=== PATIENT | male | born 1975 | race Two or more races ===

== ENCOUNTER 2020-09-01 07:56 | Emergency (ER) | payer OTHER ==
[~2020-09-01] VITALS: Ht 170.2 cm; Wt 97.5 kg
[~2020-09-01 07:56] MED LIST: DIOVAN320 MG; HYZAAR 100-121 UDTAB PO; METOPROLOL SUCC50 MG PO
[2020-09-01] MEDS ORDERED: AVALIDE 300-121 EACH (08:16)
[2020-09-01] MEDS ORDERED: DICLOFENAC SOD100 MG PO (12:22)
[2020-09-01] MEDS ORDERED: SKELAXIN800 MG PO (12:22)
== END 2020-09-01 12:46 ==
LOC: ER 07:56
DX: M51.26 Other intervertebral disc displacement, lumbar region (principal); M51.27 Other intervertebral disc displacement, lumbosacral region; M62.830 Muscle spasm of back

== ENCOUNTER 2020-09-18 08:38 | Outpatient (CLI) | payer OTHER ==
[~2020-09-18 08:38] MED LIST changes: +AVALIDE 300-121 EACH; +DICLOFENAC SOD100 MG PO; +SKELAXIN800 MG PO
== END 2020-09-18 08:45 | disposition home or self-care (01) ==
LOC: MRI 08:38
PROVIDERS: ATTEND Physical Medicine & Rehabilitation
DX: M48.07 Spinal stenosis, lumbosacral region (principal); M54.5 Low back pain
CPT/HCPCS: 72148

== ENCOUNTER 2020-09-21 14:44 | Emergency (ER) | payer OTHER ==
[~2020-09-21] VITALS: Ht 170.2 cm; Wt 92.1 kg
== END 2020-09-21 18:03 | disposition home or self-care (01) ==
LOC: ER 14:44
DX: N50.812 Left testicular pain (principal); N50.811 Right testicular pain; N50.82 Scrotal pain

== ENCOUNTER 2021-02-21 02:05 | Emergency (ER) | payer OTHER ==
[~2021-02-21] VITALS: Ht 170.2 cm; Wt 98.9 kg
[2021-02-21] MEDS ORDERED: KETO10TA2 PO (03:29)
[2021-02-21] MEDS ORDERED: NORFLEX100MG PO (03:29)
== END 2021-02-21 04:11 | disposition home or self-care (01) ==
LOC: ER 02:05
DX: M54.5 Low back pain (principal)

== ENCOUNTER 2021-05-17 23:06 | Emergency (ER) | payer OTHER ==
[~2021-05-17] VITALS: Ht 170.2 cm; Wt 98.9 kg
[~2021-05-17 23:06] MED LIST changes: +KETO10TA2 PO; +NORFLEX100MG PO
[2021-05-18] MEDS ORDERED: NEURONTIN300 MG PO (02:07)
[2021-05-18] MEDS ORDERED: MEDROLPACK PO (02:07)
[2021-05-18] MEDS ORDERED: NORFLEX100MG PO (02:07)
[2021-05-18] MEDS ORDERED: KETO10TA2 PO (02:07)
== END 2021-05-18 02:33 | disposition home or self-care (01) ==
LOC: ER 23:06
DX: R07.89 Other chest pain (principal); M79.602 Pain in left arm; M54.2 Cervicalgia

== ENCOUNTER 2024-03-17 14:35 | Emergency (ER) | payer OTHER ==
[~2024-03-17] VITALS: Ht 170.2 cm; Wt 90.7 kg
[~2024-03-17 14:35] MED LIST changes: +MEDROLPACK PO; +NEURONTIN300 MG PO
[2024-03-17] MEDS ORDERED: HYOSCYAMINE SULFATE 0.125 MG TAB.SUBL ONE (16:53)
[2024-03-17] MEDS ORDERED: KETOROLAC TROMETHAMINE 30 MG VIAL ONE (16:53)
[2024-03-17] MEDS ORDERED: KETOROLAC TROMETHAMINE 15 MG VIAL IV ONE (17:00)
[2024-03-17] MEDS ORDERED: HYOSCYAMINE SULFATE 0.125 MG TAB.SUBL SL ONE (17:00)
[2024-03-17] MEDS ORDERED: PANTOPRAZOLE SODIUM 40 MG/VIAL VIAL IV PUSH ONE (17:00)
[2024-03-17 17:04] LABS: HEMATOCRIT 38.1 % (39.0-48.0); HEMOGLOBIN 13.2 g/dL (13-16.00); MEAN CELL VOLUME 86.6 fL (80.0-100.00); MEAN CORPUSCULAR HGB CONC 34.6 g/dl (32.0-36.0); PLATELET COUNT 491 K/uL (150-450); RED BLOOD COUNT 4.39 M/uL (4.00-6.00); RED CELL DISTRIBUTION WIDTH 13.8 % (11.5-14.5)
[2024-03-17 17:23] LABS: ALBUMIN 3.3 gm/dL (3.4-5.0); BILIRUBIN TOTAL 0.47 mg/dL (0.3-1.2); CALCIUM 9.8 mg/dL (8.5-10.1); CREATININE SERUM 1.03 mg/dL (0.70-1.30); GFR 76.44; GLOBULINA 5.1 G/DL (2.4-3.5); POTASSIUM 4.59 mEq/L (3.5-5.1); TOTAL PROTEIN 8.4 gm/dL (6.4-8.2)
== END 2024-03-17 18:18 | disposition home or self-care (01) ==
LOC: ER 14:36
PROVIDERS: General Practice
DX: K29.70 Gastritis, unspecified, without bleeding (principal); I10 Essential (primary) hypertension